=== PATIENT | male | born 1980 | race Two or more races ===

== ENCOUNTER 2023-12-19 08:48 | Emergency (ER) | payer OTHER ==
[~2023-12-19] VITALS: Ht 175.3 cm; Wt 87.0 kg
[2023-12-19] MEDS ORDERED: cloNIDine HCL 0.1 MG TAB PO ONE (09:15)
[2023-12-19 09:43] VITALS: BP 180/114; PULSE 84; RESP 18; TEMP 98; O2SAT 98
[2023-12-19] MEDS ORDERED: PRED20TA2 PO (21:31)
[2023-12-19] MEDS ORDERED: FAMO20TA10 PO (21:31)
[2023-12-19] MEDS ORDERED: POLYSOL7 EACHEYE (21:31)
[2023-12-19] MEDS ORDERED: DIPH25CA51 PO (21:31)
[2023-12-19] MEDS ORDERED: VALA1TAB34 PO (21:31)
== END 2023-12-19 10:05 | disposition home or self-care (01) ==
LOC: ER 08:48
DX: I16.0 Hypertensive urgency (principal); R68.84 Jaw pain; H92.01 Otalgia, right ear

== ENCOUNTER 2023-12-19 18:03 | Emergency (ER) | payer OTHER ==
[~2023-12-19] VITALS: Ht 175.3 cm; Wt 87.2 kg
[2023-12-19] MEDS ORDERED: diphenhdrAMINE HCL 50 MG/1 ML VL IM ONE (21:30)
[2023-12-19] MEDS ORDERED: FAMOTIDINE 20 MG TAB PO ONE (21:30)
[2023-12-19] MEDS ORDERED: DexAMETHasone SOD PHOS 10MG/1ML VIAL INJ IM ONE (21:30)
[2023-12-19] MEDS ORDERED: VALA1TAB34 PO (21:31)
[2023-12-19] MEDS ORDERED: FAMO20TA10 PO (21:31)
[2023-12-19] MEDS ORDERED: DIPH25CA51 PO (21:31)
[2023-12-19] MEDS ORDERED: POLYSOL7 EACHEYE (21:31)
[2023-12-19] MEDS ORDERED: PRED20TA2 PO (21:31)
[2023-12-19 22:48] VITALS: BP 138/97; PULSE 87; RESP 16; TEMP 97.8
[2023-12-19 22:52] VITALS: O2SAT 96
== END 2023-12-19 21:19 | disposition home or self-care (01) ==
LOC: ER 18:03
DX: T78.49XA Other allergy, initial encounter (principal); G51.0 Bell's palsy; R03.0 Elevated blood-pressure reading, without diagnosis of hypertension; Z79.899 Other long term (current) drug therapy; X58.XXXA Exposure to other specified factors, initial encounter
CPT/HCPCS: 70450; 96372; 99285; J1100; J1200